=== PATIENT | male | born 1950 | race African-American/Black ===

== ENCOUNTER 2018-12-26 19:15 | Emergency (ER) | payer MEDICARE, MEDICAID ==
[~2018-12-26] VITALS: Ht 180.3 cm; Wt 97.7 kg
[2018-12-26] MEDS ORDERED: LOSA50TA64 PO (19:42)
[2018-12-26] MEDS ORDERED: KDUR10 PO (19:42)
[2018-12-26] MEDS ORDERED: AMLO-512 PO (19:42)
[2018-12-26] MEDS ORDERED: FERR-89 PO (19:42)
[2018-12-26] MEDS ORDERED: CHL25 PO (19:42)
[2018-12-26] MEDS ORDERED: ATOR40TA28 PO (19:42)
[2018-12-26] MEDS ORDERED: ALBU8.5H8 IH (19:42)
[2018-12-26] MEDS ORDERED: HYDR25TA PO (19:42)
[2018-12-26] MEDS ORDERED: OXYMETAZOLINE HCL 0.05% 15 ML NASAL SPRAY NASAL ONE (21:15)
[2018-12-26] MEDS ORDERED: TRANEXAMIC ACID 1,000 MG/10 ML VIAL IVP ONE (22:00)
[2018-12-26 22:08] LABS: BASOPHILS % (AUTO) 1.5 % (0.0-2.0); EOSINOPHILS % (AUTO) 3.3 % (1.0-6.0); HEMATOCRIT 40.6 % (41-53); HEMOGLOBIN 13.6 g/dL (13.5-17.5); LYMPHOCYTES # (AUTO) 1.3 K/uL (1.0-4.8); LYMPHOCYTES % (AUTO) 19.1 % (22.0-44.0); MEAN CORPUSCULAR HEMOGLOBIN 26.1 pg (26.0-34.0); MEAN CORPUSCULAR HGB CONC 33.4 G/dL (31.0-37.0); MEAN CORPUSCULAR VOLUME 78 fL (80-100); MONOCYTES # (AUTO) 0.5 K/uL (0.1-1.0); MONOCYTES % (AUTO) 7.5 % (2.0-9.0); NEUTROPHILS # (AUTO) 4.8 K/uL (1.8-7.7); NEUTROPHILS % (AUTO) 68.6 % (40.0-70.0); PLATELET COUNT (AUTO) 235 K/uL (150-450); RED CELL DISTRIBUTION WIDTH 14.7 % (11.5-14.5)
[2018-12-26 22:21] LABS: ANION GAP 9 mmol/L (8-16); CALCIUM, TOTAL 9.3 mg/dL (8.8-10.5); CARBON DIOXIDE 28 mmol/L (22-29); CHLORIDE 104 mmol/L (98-107); CREATININE 1.32 mg/dL (0.60-1.30); GLOMERULAR FILTR. RATE CALC > 60 mL/min (>60); GLUCOSE,RANDOM 115 mg/dL (70-110); POTASSIUM 3.7 mmol/L (3.5-5.1); SODIUM SERUM 141 mmol/L (136-145); UREA NITROGEN, BLOOD 19 mg/dL (7-18)
[2018-12-26 22:23] LABS: PROTHROMBIN TIME 10.3 SEC (9.4-11.6)
[2018-12-26 22:27] LABS: ALANINE AMINOTRANSFERASE 28 U/L (12-78); ALBUMIN 3.6 g/dL (3.4-5.0); ALKALINE PHOSPHATASE 62 U/L (46-116); ASPARTATE AMINOTRANSFERASE 28 U/L (15-37); BILIRUBIN,TOTAL 0.5 mg/dL (0.1-1.0); TOTAL PROTEIN, SERUM 7.8 g/dL (6.4-8.2)
[2018-12-26] MEDS ORDERED: SILVER NITRATE APPLICATOR 1 EA STICK TP ONE (22:30)
[2018-12-26 22:52] VITALS: BP 165/90
== END 2018-12-26 22:54 | disposition home or self-care (01) ==
LOC: EMS 19:18
DX: R04.0 Epistaxis (principal); E78.00 Pure hypercholesterolemia, unspecified; I10 Essential (primary) hypertension; J45.909 Unspecified asthma, uncomplicated; Z79.899 Other long term (current) drug therapy
CPT/HCPCS: 30901; 36415; 80053; 85025; 85610; 96374; 99284; J3490